=== PATIENT | male | born 1955 | race Caucasian/White ===

== ENCOUNTER → 2017-02-20 | Outpatient (CLI) | payer OTHER | LOC: FIMAGING 20:07 | PROVIDERS: ATTEND Psychiatry & Neurology Neurology | DX: R94.02 Abnormal brain scan (principal); R51 Headache; J34.1 Cyst and mucocele of nose and nasal sinus ==

== ENCOUNTER → 2017-07-10 | Outpatient (CLI) | payer OTHER ==
[~2017-07-10] MED LIST: GADOBUTROL 10 ML VIAL IVP ONE
== END ==
LOC: FIMAGING 19:08
PROVIDERS: ATTEND Psychiatry & Neurology Neurology
DX: G93.9 Disorder of brain, unspecified (principal)
CPT/HCPCS: A9585